=== PATIENT | male | born 1965 | race Caucasian/White ===

== ENCOUNTER 2016-11-10 05:50 | Observation (INO) | payer BC ==
[~2016-11-10] VITALS: Ht 185.4 cm; Wt 95.0 kg
[2016-11-10 06:32] LABS: EOSINOPHIL COUNT 0.1 K/uL (0-0.3); HEMATOCRIT 42.9 % (38.0-50.0); IMMATURE GRANULOCYTE (%) 0.5 % (0.0-0.7); IMMATURE GRANULOCYTE COUNT 0.1 K/uL; INSTRUMENT ABS NEUTROPHIL CT 10.1 K/uL; LYMPHOCYTE COUNT 1.8 K/uL (1.0-2.8); MCH 29.6 PG (29.0-34.0); MCHC 33.6 G/DL (30.0-36.0); MCV 88.3 FL (86-99); MEAN PLAT.VOLUME 9.1 uM^3 (9.0-12.4); MONOCYTE (%) 7.7 % (3-12); NEUTROPHIL (%) 77.1 % (45-76); NEUTROPHIL COUNT 10.1 K/uL (1.8-6.4); PLATELET COUNT 268 K/uL (156-360); RBC DIS.WIDTH-CV 11.9 % (11.8-14.6); RBC DIS.WIDTH-SD 38.3 % (39-53); RED BLOOD COUNT 4.86 M/uL (4.00-5.50); WHITE BLOOD COUNT 13.1 K/uL (4.1-10.2)
[2016-11-10 06:40] LABS: CHLORIDE 102 mEq/L (99-109); POTASSIUM 4.5 mEq/L (3.7-5.4); SODIUM 138 mEq/L (136-147)
[2016-11-10 06:43] LABS: GLUCOSE 174 mg/dL (70-99)
[2016-11-10 06:44] LABS: ANION GAP 9 MEQ/L (2-14)
[2016-11-10 06:45] LABS: TOTAL BILIRUBIN 0.7 mg/dL (0.0-1.0)
[2016-11-10 06:46] LABS: ALKALINE PHOSPHATASE 47 IU/L (3-129); GFR ESTIMATE (CALCULATED) > 59 mL/min/
[2016-11-10 06:47] LABS: UREA NITROGEN (BUN) 11 mg/dL (9-23)
[2016-11-10 06:52] LABS: TROP-I INTERPRETATION NEGATIVE; TROPONIN-I < 0.01 ng/mL (0.0-0.30)
[2016-11-10 07:00] LABS: D-DIMER ELISA 0.62 mg/L FEU (< 0.57)
[2016-11-10 08:26] LABS: BILIRUBIN NEGATIVE; BLOOD NEGATIVE; COLOR YELLOW ((YELLOW)); GLUCOSE (STRIP) NEGATIVE; KETONES NEGATIVE; LEUKOCYTES NEGATIVE; NITRITE NEGATIVE; PROTEIN (STRIP) NEGATIVE; SPECIFIC GRAVITY 1.014 (1.000-1.030); UROBILINOGEN 0.2 MG/DL (0.2-1.0)
[2016-11-10 08:36] LABS: ADD MIUA? NO
[2016-11-10 10:40] LABS: TROP-I INTERPRETATION NEGATIVE; TROPONIN-I < 0.01 ng/mL (0.0-0.30)
[2016-11-10] MEDS ORDERED: ASPIR-LOW81 MG PO (10:50)
[2016-11-10] MEDS ORDERED: SIMVASTATIN20 MG PO (10:50)
[2016-11-10] MEDS ORDERED: METFORMIN HCL500 MG PO (10:50)
[2016-11-10] MEDS ORDERED: LISINOPRIL2.5 MG PO (10:50)
[2016-11-10] MEDS ORDERED: MULTI VITAMIN1 EACH PO (10:51)
[2016-11-10] MEDS ORDERED: CIALIS10 MG PO (11:06)
[2016-11-10 12:55] VITALS: BP 123/85
[2016-11-10 15:06] VITALS: BP 134/75
[2016-11-10 21:39] VITALS: BP 134/77
[2016-11-10 23:29] VITALS: BP 130/72
[2016-11-11 04:33] VITALS: BP 116/64
[2016-11-11 07:16] VITALS: BP 118/74
[2016-11-11 11:17] VITALS: BP 125/73
[2016-11-11 15:21] LABS: POINT-OF-CARE METER ID UU13113675; POINT-OF-CARE USER ID 515036437
[2016-11-11 16:57] VITALS: BP 131/78
[2016-11-11 19:26] VITALS: BP 115/69
[2016-11-11 23:39] VITALS: BP 118/68
[2016-11-12 03:29] VITALS: BP 140/74
[2016-11-12 06:58] VITALS: BP 121/80
[2016-11-12] MEDS ORDERED: ENDOCET 5-3251 EACH PO (09:27)
[2016-11-12 12:00] VITALS: BP 120/73
== END 2016-11-12 13:50 | disposition home or self-care (01) ==
LOC: EME 05:50 → 2EAST 10:20 → EDOF 10:20 → 2EAST 10:24 → EDOF 10:24 → 2EAST 12:42
PROVIDERS: Emergency Medicine; Physician Assistant
PROC: 0FT44ZZ Resection of Gallbladder, Percutaneous Endoscopic Approach (ICD-10-PCS; principal; 2016-11-11)
DX: K80.10 Calculus of gallbladder with chronic cholecystitis without obstruction (principal); K80.12 Calculus of gallbladder with acute and chronic cholecystitis without obstruction; E11.9 Type 2 diabetes mellitus without complications; Z79.84 Long term (current) use of oral hypoglycemic drugs; E78.5 Hyperlipidemia, unspecified; I10 Essential (primary) hypertension
CPT/HCPCS: 71020; 71275; 80053; 81003; 82948; 84484; 85025; 85379; 88304; 93005; 99281; 99285; G0378; J0330; J1100; J1170; J1650; J2270; J2405; J2710; J3010; J7030

== ENCOUNTER 2017-02-01 09:18 | Emergency (ER) | payer BC ==
[~2017-02-01] VITALS: Ht 185.4 cm; Wt 99.5 kg
[~2017-02-01 09:18] MED LIST: ASPIR-LOW81 MG PO; CIALIS10 MG PO; ENDOCET 5-3251 EACH PO; LISINOPRIL2.5 MG PO; METFORMIN HCL500 MG PO; MULTI VITAMIN1 EACH PO; SIMVASTATIN20 MG PO
[2017-02-01 09:54] LABS: HEMATOCRIT 41.8 % (38.0-50.0); MCH 29.7 PG (29.0-34.0); MCHC 33.7 G/DL (30.0-36.0); MCV 88.2 FL (86-99); MEAN PLAT.VOLUME 9.1 uM^3 (9.0-12.4); PLATELET COUNT 264 K/uL (156-360); RBC DIS.WIDTH-CV 11.9 % (11.8-14.6); RBC DIS.WIDTH-SD 38.3 % (39-53); RED BLOOD COUNT 4.74 M/uL (4.00-5.50); WHITE BLOOD COUNT 16.8 K/uL (4.1-10.2)
[2017-02-01 10:00] LABS: ADD MIUA? YES; BILIRUBIN NEGATIVE; BLOOD SMALL; COLOR YELLOW ((YELLOW)); GLUCOSE (STRIP) 150; KETONES NEGATIVE; LEUKOCYTES NEGATIVE; NITRITE NEGATIVE; PROTEIN (STRIP) NEGATIVE; SPECIFIC GRAVITY 1.023 (1.000-1.030); UROBILINOGEN 0.2 MG/DL (0.2-1.0)
[2017-02-01 10:02] LABS: BACTERIA NONE SEEN /HPF; EPITHELIAL CELLS RARE /HPF; MUCUS NONE SEEN /LPF; RED BLOOD CELLS 0-5 /HPF (0-5); UCUL ADDED? NO; WHITE BLOOD CELLS 0-5 /HPF (0-5)
[2017-02-01 10:03] LABS: CHLORIDE 105 mEq/L (99-109); POTASSIUM 4.6 mEq/L (3.7-5.4); SODIUM 139 mEq/L (136-147)
[2017-02-01 10:04] LABS: GLUCOSE 188 mg/dL (70-99)
[2017-02-01 10:06] LABS: ANION GAP 14 MEQ/L (2-14)
[2017-02-01 10:08] LABS: GFR ESTIMATE (CALCULATED) > 59 mL/min/
[2017-02-01 10:09] LABS: UREA NITROGEN (BUN) 22 mg/dL (9-23)
[2017-02-01] MEDS ORDERED: FLOMAX0.4 MG PO (11:29)
[2017-02-01] MEDS ORDERED: ZOFRAN4 MG PO (11:29)
[2017-02-01] MEDS ORDERED: PERCOCET 5/31 TABLET PO (11:29)
[2017-02-01 11:56] VITALS: BP 129/76
== END 2017-02-01 11:57 | disposition home or self-care (01) ==
LOC: EME 09:18
DX: N13.2 Hydronephrosis with renal and ureteral calculous obstruction (principal); N28.1 Cyst of kidney, acquired; K43.9 Ventral hernia without obstruction or gangrene; I70.0 Atherosclerosis of aorta; I10 Essential (primary) hypertension; E78.5 Hyperlipidemia, unspecified; E11.9 Type 2 diabetes mellitus without complications; Z79.84 Long term (current) use of oral hypoglycemic drugs; Z79.82 Long term (current) use of aspirin; Z90.49 Acquired absence of other specified parts of digestive tract
CPT/HCPCS: 74176; 80048; 81003; 85027; 99281; 99285; J1885; J2270; J2405; J7030